=== PATIENT | male | born 1985 | race Caucasian/White ===

== ENCOUNTER 2016-07-25 22:11 | Emergency (ER) | payer OTHER ==
[~2016-07-25 22:11] MED LIST: ALBUTEROL0.09 MG/A1 INH; AUGMENTIN 875 M1 TAB PO; CLINDAMYCIN300 MG PO; FLEXERIL10 MG PO; POLYTRIM O200 GTT/BO OS; PREDNISONE50 MG PO; TESSALON PERLE100 MG PO; VITAMIN C500 M3 PO
[2016-07-25 22:24] VITALS: BP 134/87
--- NOTE | 2016-07-25 23:59 | ED HEAD/FACIAL INJ COMPLAINT ---
History of Present Illness General Chief Complaint: Headache Stated Complaint: HEADACHE X1 WEEK, GETTING WORSE Source: patient, old records Exam Limitations: no limitations Vital Signs & Intake/Output Vital Signs & Intake/Output Vital Signs Date Time Temp Pulse Resp B/P Pulse O2 O2 Flow FiO2 Ox Delivery Rate 07/26 0001 Room Air 07/254 98.2 93 16 134/87 98 Room Air Allergies Coded Allergies: metoclopramide (From REGLAN) (Mild, 07/26/16) Reconcile Medications Ascorbic Acid (Vitamin C) (Unknown Strength) TAB (Unknown Dose) PO DAILY SUPPLEMENT (Reported) Butalb/Acetaminophen/Caffeine (Fioricet 50-300-40 MG Capsule) 50 MG-300 MG-40 MG CAPSULE 1-2 TAB PO Q6P PRN headache Triage Note: TRIAGE; PT TO ED C/O HEADACHE X1 WEEK THAT HAS BEEN GETTING WORSE. STATES THAT HE FEELS THE PAIN RUN DOWN HIS NECK. DENIES ANY N/V. DENIES ANY PHOTOSENSITIVITY. Triage Nurses Notes Reviewed? yes Onset: 2 weeks Severity: moderate Location: global Loss of Consciousness: no loss of consciousness HPI: 2 weeks prior to admission patient complains of constant head pressure with sensation of water running down the back of his head. 7 years prior to admission patient suffered from headaches and was diagnosed with arachnoid cyst. Headaches went away he's had no further follow-up. He denies fever chills nausea vomiting diarrhea abdominal pain chest pain shortness of breath dysuria rash bleeding change in motor sensory function head strike. Past History Travel History Traveled to [place] past 21 day No Medical History Any Pertinent Medical History? see below for history Neurological: NONE EENT: NONE Cardiovascular: NONE Respiratory: asthma Gastrointestinal: NONE Hepatic: NONE Renal: NONE Musculoskeletal: NONE Psychiatric: NONE Endocrine: NONE Blood Disorders: NONE Surgical History Surgical History: N Psychosocial History What is your primary language Icelandic Tobacco Use: Never used Family History Hx Contributory? No Review of Systems Review of Systems Constitutional: Reports: no symptoms. EENTM: Reports: no symptoms. Respiratory: Reports: no symptoms. Cardiovascular: Reports: no symptoms. GI: Reports: no symptoms. Genitourinary: Reports: no symptoms. Musculoskeletal: Reports: no symptoms. Skin: Reports: no symptoms. Neurological/Psychological: Reports: see HPI, headache. Hematologic/Endocrine: Reports: no symptoms. Immunologic/Allergic: Reports: no symptoms. All Other Systems: Reviewed and Negative Physical Exam Physical Exam General Appearance: well developed/nourished, alert, awake, anxious, mild distress Head: atraumatic, normal appearance Eyes: Bilateral: normal appearance, PERRL, EOMI. Ears, Nose, Throat: normal pharynx, normal ENT inspection, hearing grossly normal Neck: normal inspection, supple, full range of motion, no midline tenderness Respiratory: normal breath sounds, chest non-tender, no respiratory distress, quiet respiration, lungs clear Cardiovascular: regular rate/rhythm, normal peripheral pulses, norml femoral pulses equa Gastrointestinal: normal bowel sounds, soft, non-tender, no organomegaly Back: normal inspection, normal range of motion Extremities: normal inspection, normal capillary refill, normal range of motion, no edema Psychiatric: awake, alert, oriented x 3 Cranial Nerves: normal hearing, normal speech, PERRL Coordination/Gait: normal finger to nose, normal gait Motor/Sensory: no motor/sensory deficits Reflexes: 2+: bicep (R), bicep (L). Skin: intact, normal color, warm/dry Lymphatic: no anterior cervical yadira Progress Differential Diagnosis: ICH Plan of Care: Analgesia Diagnostic Imaging: Viewed by Me: CT Scan. Discussed w/RAD: CT Scan. Radiology Impression: no change in arachnoid cyst Comments: Episode of agitation after reglan. Benadryl given with improvement. Departure Departure Time of Disposition: 243 Disposition: HOME OR SELF CARE Condition: Stable Clinical Impression Primary Impression: Headache Qualifiers: Headache type: unspecified Secondary Impressions: Intracranial arachnoid cyst Referrals: TINY GALLO,RYAN DAVIES MD,JAXON (PCP/Family) Call for neurology follow up Departure Forms: Customer Survey General Discharge Information Prescriptions: Current Visit Scripts Butalb/Acetaminophen/Caffeine (Fioricet 50-300-40 MG Capsule) 1-2 TAB PO Q6P PRN headache #30 TAB
--- NOTE | 2016-07-26 00:48 | CT SCAN REPORT ---
EXAMINATION: CT HEAD WITHOUT CONTRAST CLINICAL INFORMATION: Recurrent headaches. COMPARISON: MRI of the head 11/02/2011. MRI of head 08/04/2010. TECHNIQUE: Contiguous axial imaging was performed from the skull base to vertex without intravenous administration of contrast. DLP: 529.16 mGy-cm FINDINGS: There is no evidence of acute intracranial hemorrhage or territorial infarction. No abnormal mass effect or midline shift is seen. Braga to white matter differentiation is well preserved. No extra-axial fluid collections are identified. The ventricles are normal in size. There is stable retrocerebellar CSF space prominence unchanged since prior MR probably representing an arachnoid cyst. There is no abnormal attenuation within the brain parenchyma. The osseous structures and soft tissues are normal. The mastoid air cells and visualized portions of the paranasal sinuses are well aerated. IMPRESSION: No acute intracranial pathology.
[2016-07-26] MEDS ORDERED: FIORICET 50-301 EACH PO (02:45)
== END 2016-07-26 02:57 ==
LOC: ERH 22:11
DX: G93.0 Cerebral cysts (principal)
CPT/HCPCS: 96374; 96375; J1200; J1885; J2765